=== PATIENT | female | born 1975 ===

== ENCOUNTER 2018-09-21 07:51 | Emergency (ER) | payer SELFPAY ==
[~2018-09-21] VITALS: Ht 160 cm; Wt 65.8 kg
[2018-09-21] MEDS ORDERED: IV NORMAL SALINE 1000 ML BAG IV ONE ×2 (08:00)
--- NOTE | 2018-09-21 08:00 | NUR ---
PT BIN VIA WC FROM [facility] - FEELING FAINT AND "ABOUT TO PASS OUT.:" STATES SHE FEELS BILAT EYE PRESSURE SINCE 7:15 AM, UNPROVOKED. DENIES EYE PROBLEMS, NO BLURRED VISION. CURRENTLY ON ERYTHROMYCIN FOR H. PYLORI. MONITOR ATTACHED - S TACHYCARDIA. DR LOZOYA AT BEDSIDE FOR EVAL
[2018-09-21] MEDS ORDERED: LORAZEPAM 2 MG/1 ML VIAL IV ONE (08:15)
[2018-09-21] MEDS ORDERED: LORAZEPAM 2 MG/1 ML VIAL ONE (08:15)
[2018-09-21 08:19] LABS: BASOPHILS # (AUTO) 0.1 K/uL (0.0-8.0); BASOPHILS % (AUTO) 0.8 % (0.0-2.0); EOSINOPHILS # (AUTO) 0.1 K/uL (0.0-0.7); EOSINOPHILS % (AUTO) 1.1 % (0.0-7.0); HEMOGLOBIN 13.4 g/dL (10.9-14.3); LYMPHOCYTES # (AUTO) 4.6 K/uL (20.0-40.0); LYMPHOCYTES % (AUTO) 43.9 % (20.5-51.5); MEAN CORPUSCULAR HGB CONC 33 g/dL (32.3-35.6); MEAN CORPUSCULAR VOLUME 80.9 fL (75.5-95.3); MONOCYTES # (AUTO) 0.7 K/uL (2.0-10.0); MONOCYTES % (AUTO) 6.5 % (0.0-11.0); NEUTROPHILS % (AUTO) 47.7 % (38.5-71.5); PLATELET COUNT (AUTO) 379 K/uL (179-408); RED BLOOD CELL COUNT(AUTO) 4.95 MIL/uL (3.63-4.92); WHITE BLOOD COUNT (AUTO) 10.4 K/uL (3.8-11.8)
[2018-09-21] MEDS ORDERED: DIAZ5TAB PO (08:21)
[2018-09-21] MEDS ORDERED: ERYT250C68 PO (08:21)
[2018-09-21 08:43] LABS: CREATININE 0.8 mg/dL (0.6-1.3); POTASSIUM 3.7 mmol/L (3.5-5.1)
[2018-09-21 08:45] LABS: BAND % (MANUAL) 1 % (0-10); EOSINOPHILS % (MANUAL) 1 % (0-8); LYMPHOCYTES % (MANUAL) 45 % (20-40); MONOCYTES % (MANUAL) 7 % (2-10); NEUTROPHILS % (MANUAL) 46 % (42-75)
[2018-09-21 08:49] LABS: BILIRUBIN,DIRECT 0.2 mg/dL (0.0-0.2); BILIRUBIN,TOTAL 0.7 mg/dL (0.2-1.0); TOTAL PROTEIN, SERUM 7.8 g/dL (6.4-8.2)
[2018-09-21] MEDS ORDERED: DIAZEPAM 5 MG TABLET ONE (08:53)
[2018-09-21] MEDS ORDERED: NORMAL SALINE FLUSH 10 ML DISP.SYRIN ONE (08:55)
[2018-09-21] MEDS ORDERED: IV NORMAL SALINE 250 ML IV ONE (08:55)
[2018-09-21] MEDS ORDERED: SWABABLE VALVE TRANSFER SET EA MC ONE (08:55)
[2018-09-21] MEDS ORDERED: IOHEXOL 350 100 ML INFUS..BTL ONE (08:55)
--- NOTE | 2018-09-21 08:55 | NUR ---
Pt signed consent for IV contrast CTA.
[2018-09-21] MEDS ORDERED: DIAZEPAM 2 MG TABLET PO ONE (09:00)
--- NOTE | 2018-09-21 09:05 | NUR ---
Pt out of ER for CT.
--- NOTE | 2018-09-21 09:33 | NUR ---
Pt back from CT, family at the bedside.
[2018-09-21 11:31] VITALS: BP 129/80
--- NOTE | 2018-09-21 11:47 | NUR ---
Patient discharged to home in stable conditon. Written and verbal after care instructions given. Patient verbalizes understanding of instructions.
--- NOTE | 2018-09-21 11:47 | NUR ---
IV removed. Catheter intact and site benign. Pressure and 4x4 gauze applied to site. No bleeding noted.
== END 2018-09-21 11:48 | disposition home or self-care (01) ==
LOC: ER 08:04
DX: R00.2 Palpitations (principal); F41.9 Anxiety disorder, unspecified; R07.9 Chest pain, unspecified; Z88.2 Allergy status to sulfonamides
CPT/HCPCS: 36415; 71045; 71275; 80048; 80076; 84443; 84484 ×2; 84702; 85025; 85379; 93005 ×2; 96360; 96374; 99284; J2060; Q9967; 70030-TC; A4663; J3490; J7030; J7050